=== PATIENT | male | born 1995 | race African-American/Black ===

== ENCOUNTER 2025-06-20 09:23 | Emergency (ER) | payer OTHER ==
[~2025-06-20] VITALS: Ht 177.8 cm; Wt 77.1 kg
[2025-06-20 09:28] VITALS: TEMP 98.2
[2025-06-20] MEDS ORDERED: IBUP-1955 PO (10:39)
[2025-06-20 10:45] VITALS: BP 133/89
[2025-06-20 10:55] VITALS: O2SAT 99
== END 2025-06-20 11:05 | disposition home or self-care (01) ==
LOC: ER 09:33
DX: S89.91XA Unspecified injury of right lower leg, initial encounter (principal); M25.461 Effusion, right knee; X50.1XXA Overexertion from prolonged static or awkward postures, initial encounter; Y93.67 Activity, basketball; Y92.39 Other specified sports and athletic area as the place of occurrence of the external cause; Y99.8 Other external cause status
CPT/HCPCS: 73564-TC